=== PATIENT | male | born 1950 | race Caucasian/White ===

== ENCOUNTER 2022-09-26 09:52 | Outpatient (CLI) | payer MEDICARE, OTHER ==
[2022-09-26] VITALS (18 sets, daily range): BP systolic 110–151; BP diastolic 52–88
[~2022-09-26 09:52] MED LIST: ONDA8TAB6 PO
== END 2022-09-26 23:59 | disposition home or self-care (01) ==
LOC: CARD DIAG 09:52
PROVIDERS: ATTEND Internal Medicine Cardiovascular Disease
DX: R55 Syncope and collapse (principal); G90.9 Disorder of the autonomic nervous system, unspecified
CPT/HCPCS: 93660

== ENCOUNTER 2022-12-01 15:00 | Inpatient (IN) | payer MEDICARE, OTHER ==
[~2022-12-01] VITALS: Ht 182.9 cm; Wt 97.8 kg
--- NOTE | 2022-12-01 15:17 | NUR ---
EKG 1510
[2022-12-01 15:27] LABS: EOSINOPHILS % (AUTO) 0 % (0-6); HEMOGLOBIN 13.1 g/dl (14.0-17.9); RED BLOOD COUNT 4.33 X10'6 (4.70-6.10); WHITE BLOOD COUNT 13.6 X10'3 (4.5-11.0)
[2022-12-01 15:30] LABS: BASOPHILS % (AUTO) 0.1 % (0-1); HEMATOCRIT 37.9 % (42.0-52.0); LYMPHOCYTES # (AUTO) 0.3 X10'3 (1.1-4.8); LYMPHOCYTES % (AUTO) 2.5 % (21-51); MEAN CORPUSCULAR HEMOGLOBIN 30.2 PG (27.0-31.0); MEAN CORPUSCULAR HGB CONC 34.5 g/dL (33.0-36.5); MEAN CORPUSCULAR VOLUME 87.7 FL (78-98); MONOCYTES # (AUTO) 0.3 X10'3 (0-0.9); MONOCYTES % (AUTO) 1.9 % (2-12); NEUTROPHILS # (AUTO) 12.9 X10'3 (1.8-7.7); NEUTROPHILS % (AUTO) 95.5 % (42-75); PLATELET COUNT 189 X10'3 (140-440); RED CELL DISTRIBUTION WIDTH 13.2 % (11.5-14.5)
[2022-12-01] MEDS ORDERED: acetaminophen 325mg tablet PO ONE (15:40)
[2022-12-01 15:48] LABS: ALANINE AMINOTRANSFERASE 20 U/L (12-78); ALBUMIN 4.2 G/DL (3.4-5.0); ALBUMIN/GLOBULIN RATIO 1.2 (1.1-1.5); ALKALINE PHOSPHATASE 87 IU/L (46-116); ANION GAP 12 (8-16); ASPARTATE AMINO TRANSFERASE 16 U/L (10-37); BILIRUBIN,TOTAL 2.2 MG/DL (0.1-1.0); BLOOD UREA NITROGEN 24 MG/DL (7-18); BUN/CREATININE RATIO 14.6 (10.0-20.0); CALCIUM 9.3 MG/DL (8.5-10.1); CHLORIDE 103 MMOL/L (99-107); CREATININE 1.64 MG/DL (0.60-1.10); GLUCOSE 246 MG/DL (70-104); POTASSIUM 4.9 MMOL/L (3.5-5.1); SODIUM 134 MMOL/L (135-145); TOTAL CARBON DIOXIDE 19.3 MMOL/L (24-32); TOTAL PROTEIN 7.6 G/DL (6.4-8.2); eCRCL 44 ML/MIN; eGFR 41 ML/MIN
[2022-12-01 15:51] LABS: PRO BRAIN NATRIURETIC PEPTIDE 121 PG/ML (0-125)
--- NOTE | 2022-12-01 17:18 | NUR ---
PT STATED SHE GAVE HIM 500 MG TABLET OF TYLENOL 1 HR AGO. RN WILL GABRIEL TEMP.
[2022-12-01] MEDS ORDERED: ibuprofen tablet 400 MG TABLET PO ONE (17:25)
--- NOTE | 2022-12-01 17:28 | NUR ---
RN NOTIFIED DR HANCOCK THAT PT RECD 500 MG TYLENOL TABLET 1 HR AGO AND TEMP IS 102.5. PER DR HANCOCK GIVE 400 MG IBUPROFEN PO ONCE AND CONT TO MONITOR/ALSO ORD COVID AND FLU TEST.
[2022-12-01 20:15] LABS: BILIRUBIN,URINE SMALL (Neg); CLARITY,URINE TURBID (Clear); COLOR,URINE AMBER (Yellow); GLUCOSE, URINE NEGATIVE (Neg); KETONES,URINE TRACE mg/dl (Neg); LEUKOCYTE ESTERASE ,URINE MODERATE (Neg); NITRITES, URINE NEGATIVE (Neg); OCCULT BLOOD,URINE TRACE-INTACT (Neg); PH,URINE 5.5 (4.8-8.0); PROTEIN,URINE 100 mg/dl (Neg); UROBILINOGEN,URINE 0.2 E.U/dL (0.2-1.0)
[2022-12-01 20:30] LABS: UA COLLECTION TYPE CLN CATCH MIDSTREAM
[2022-12-01 20:31] LABS: SQUAMOUS EPITHELIAL CELL,UR MANY /LPF (FEW)
[2022-12-01 20:33] LABS: RBC,URINE 0-2 /HPF (0-2); WBC,URINE TNTC /HPF (0-4)
[2022-12-01 20:34] LABS: BACTERIA,URINE 4+ /HPF (Neg)
[2022-12-01 20:43] LABS: CAL OXALATE CRYSTALS 1+ /HPF (NEGATIVE)
[2022-12-01] MEDS ORDERED: temazepam 15mg capsule PO PRN (21:00)
[2022-12-01] MEDS ORDERED: CefTRIAXone/D5W-Rocephin 1gm 50 ML IV ONE (21:10)
[2022-12-01] MEDS ORDERED: morphine 2 MG/ML inj. syringe IV PRN ×2 (23:20)
[2022-12-01] MEDS ORDERED: HYDROcodone/acetaminophen 5mg/325mg tablet PO PRN (23:20)
[2022-12-01] MEDS ORDERED: diphenhydrAMINE 25mg capsule PO PRN (23:20)
[2022-12-01] MEDS ORDERED: diphenhydrAMINE 50 mg/ml inj IV PRN (23:20)
[2022-12-01] MEDS ORDERED: magnesium hydroxide 30ml (MOM) UD suspension PO PRN (23:20)
[2022-12-01] MEDS ORDERED: acetaminophen 325mg tablet PO PRN (23:20)
[2022-12-01] MEDS ORDERED: ondansetron/PF 4mg/2ml inj IV PRN (23:20)
[2022-12-01] MEDS ORDERED: bisacodyl 10mg suppository rectal RC PRN (23:20)
[2022-12-01] MEDS ORDERED: acetaminophen 650mg rectal suppository RC PRN (23:20)
[2022-12-01] MEDS ORDERED: HYDROmorphone inj. 0.5 MG/0.5 ML DISP.SYRIN IV PRN (23:20)
[2022-12-01] MEDS ORDERED: HYDROcodone/acetaminophen 10/325mg tab PO PRN (23:20)
[2022-12-01] MEDS ORDERED: mag hydrox/Alum hydrox/simeth 30ml oral suspension PO PRN (23:20)
[2022-12-01] MEDS ORDERED: ondansetron 4mg rapidly disintigrating tab PO PRN (23:20)
[2022-12-01] MEDS ORDERED: insulin Lispro (HumaLOG) vial - multi-dose SQ SCH (23:25)
[2022-12-01] MEDS ORDERED: glucagon, human recombinant 1mg kit SUBCUT PRN (23:25)
[2022-12-01] MEDS ORDERED: DEXTROSE 15 GM of carb/4 tabs (each vial/BOTTLE has 4 tablets) PO PRN ×2 (23:25)
[2022-12-01] MEDS ORDERED: dextrose 50%-water 50ml dispensing syringe IV PRN ×2 (23:25)
[2022-12-01] MEDS ORDERED: MESSAGE TO PHARMACY PO ONE (23:25)
[2022-12-01] MEDS: normal saline 1000ml 1,000 ML IV SCH (23:39)
[2022-12-02] VITALS (11 sets, daily range): BP systolic 123–169; BP diastolic 56–73; PULSE 85–117; RESP 15–20; TEMP 98.2–102.3; O2SAT 92–98
[2022-12-02] MEDS ORDERED: LOSA100T58 PO (00:02)
[2022-12-02] MEDS ORDERED: LEVO137T2 PO (00:02)
[2022-12-02] MEDS ORDERED: FLO0.4C PO (00:02)
[2022-12-02] MEDS ORDERED: METF-1203 PO (00:02)
[2022-12-02] MEDS ORDERED: GLIM4TAB7 PO (00:02)
[2022-12-02] MEDS ORDERED: DUTA0.5C36 PO (00:02)
[2022-12-02] MEDS ORDERED: CYAN-104 PO (00:04)
--- NOTE | 2022-12-02 00:41 | NUR ---
ATTEMPTED TO CALL REPORT TO BRUCE ROCA. NOTIFIED RN IS WITH A PATIENT AND WILL CALL BACK
--- NOTE | 2022-12-02 06:14 | NUR ---
Problems reprioritized. Patient report given, questions answered & plan of care reviewed with BRUCE Vincent.
[2022-12-02 06:30] LABS: APTT 21 SECONDS (22-32); INR 1.1 INR; PROTHROMBIN TIME 11.4 SECONDS (9.0-12.0)
--- NOTE | 2022-12-02 06:35 | NUR ---
Patient in room [facility]TH[facility] 4024. I have received report from Natalee and had the opportunity to ask questions and assume patient care.
[2022-12-02 06:42] LABS: BASOPHILS % (AUTO) 0.3 % (0-1); EOSINOPHILS % (AUTO) 0 % (0-6); HEMATOCRIT 33.8 % (42.0-52.0); HEMOGLOBIN 11.5 g/dl (14.0-17.9); LYMPHOCYTES # (AUTO) 0.4 X10'3 (1.1-4.8); LYMPHOCYTES % (AUTO) 2.9 % (21-51); MEAN CORPUSCULAR HEMOGLOBIN 30.4 PG (27.0-31.0); MEAN CORPUSCULAR VOLUME 89.4 FL (78-98); MONOCYTES # (AUTO) 0.4 X10'3 (0-0.9); MONOCYTES % (AUTO) 3.4 % (2-12); NEUTROPHILS # (AUTO) 12.1 X10'3 (1.8-7.7); NEUTROPHILS % (AUTO) 93.4 % (42-75); PLATELET COUNT 151 X10'3 (140-440); RED BLOOD COUNT 3.79 X10'6 (4.70-6.10); RED CELL DISTRIBUTION WIDTH 13.1 % (11.5-14.5); WHITE BLOOD COUNT 12.9 X10'3 (4.5-11.0)
[2022-12-02 07:00] LABS: ALANINE AMINOTRANSFERASE 13 U/L (12-78); ALBUMIN 3.5 G/DL (3.4-5.0); ALBUMIN/GLOBULIN RATIO 1.1 (1.1-1.5); ALKALINE PHOSPHATASE 71 IU/L (46-116); ANION GAP 12 (8-16); ASPARTATE AMINO TRANSFERASE 18 U/L (10-37); BILIRUBIN,TOTAL 2.1 MG/DL (0.1-1.0); BLOOD UREA NITROGEN 32 MG/DL (7-18); BUN/CREATININE RATIO 16.6 (10.0-20.0); CALCIUM 8.5 MG/DL (8.5-10.1); CHLORIDE 103 MMOL/L (99-107); CHOL/HDL RATIO 2.6 (0.00-4.99); CHOLESTEROL 110 MG/DL (0-200); CREATINE KINASE 118 U/L (39-308); CREATININE 1.93 MG/DL (0.60-1.10); GLUCOSE 179 MG/DL (70-104); HDL CHOLESTEROL 43 MG/DL (35-60); HEMOGLOBIN A1C 6.5 % (4.5-6.2); LDL CHOLESTEROL 61 MG/DL (50-100); LIPASE < 50 U/L (73-393); MAGNESIUM 1.8 MG/DL (1.5-2.4); PHOSPHORUS 2.8 MG/DL (2.3-4.5); POTASSIUM 4.7 MMOL/L (3.5-5.1); PRO BRAIN NATRIURETIC PEPTIDE 627 PG/ML (0-125); SODIUM 133 MMOL/L (135-145); THYROID STIMULATING HORMONE 0.08 ulU/ml (0.34-4.50); TOTAL PROTEIN 6.7 G/DL (6.4-8.2); TRIGLYCERIDES 60 MG/DL (20-135); eCRCL 37 ML/MIN; eGFR 34 ML/MIN
[2022-12-02] MEDS: pantoprazole 40mg Tablet.DR PO SCH (07:34)
[2022-12-02] MEDS: heparin, porcine 5000 units/ml vial SQ SCH ×2 (07:35→19:20)
[2022-12-02] MEDS: CefTRIAXone 2gm/D5W 50ml BAG 50 ML IV SCH (07:35)
[2022-12-02] MEDS: normal saline 1000ml 1,000 ML IV SCH ×4 (07:45→21:36)
[2022-12-02] MEDS: docusate sod 100mg capsule PO SCH ×2 (08:00→20:00)
--- NOTE | 2022-12-02 09:16 | NUR ---
RE: Felix, [id number], positive blood cultures, gm neg rods, anaerobic bottle Day Vincent
--- NOTE | 2022-12-02 10:02 | NUR ---
Initial: Pt admit for UTI, sepsis, generalized weakness, HANG with hyponatremia, hypovolemia, and anemia. Diet just advanced to CHO controlled from clear liquid diet, pending documentation of PO intake. Per EMR pt with T2DM, well controlled with A1c 6.5%, DM education not warranted. Recommend liberalizing to regular diet if blood sugars allow it as CHO controlled diet is very restrictive and estimated nutrient needs are not able to be met without ONS and/or additional protein. LBM 12/01 per EMR. Will continue to follow closely and make recommendations as appropriate pending trends in PO intake. Recommendations: 1) Liberalize to regular diet if able; T2DM well controlled with A1c 6.5% and current diet only able to meet 75% EEN and 66% EPN if pt with 100% PO intake of meals 2) Monitor need for ONS/additional protein 3) Routine bowel care 4) Weekly scaled weights Addendum: 12/02/22 at [address] Amended: Links added.
[2022-12-02] MEDS: acetaminophen 325mg tablet PO PRN ×2 (10:36→19:08)
--- NOTE | 2022-12-02 14:52 | NUR ---
Patient declines to take insulin after meeting the protocol, aware.
--- NOTE | 2022-12-02 18:20 | NUR ---
Problems reprioritized. Patient report given, questions answered & plan of care reviewed with Roman.
--- NOTE | 2022-12-02 19:04 | NUR ---
ruperto [id number] pt [id number] [facility]. fever 101.2 again tonight. tylenol given. any new orders? want additional blood cultures since last one was positive? sent to DR. Bailon
[2022-12-02] MEDS ORDERED: insulin glargine (Lantus) pen - multi-dose SQ SCH (21:00)
[2022-12-02] MEDS ORDERED: losartan 50mg tablet PO SCH (21:00)
--- NOTE | 2022-12-02 21:03 | NUR ---
notified dr. ham about patient's elevated temperature, positive blood cultures received earlier today and need for home meds. orders received for losartan and amaryl, ok to discontinue the diabetic protocol. no change in antibiotics "he is covered". MD aware of pt's VS. printed education sheets for patient and . concerned about fever. educated to call through the night if wants updates.
[2022-12-02] MEDS: losartan 50mg tablet PO SCH (21:33)
--- NOTE | 2022-12-02 23:00 | NUR ---
miranda called to check on patient. notified that his temperature is down to 99.9. encouraged to call later if she is concerned.
[2022-12-03 02:00] VITALS: BP 137/71; PULSE 89; RESP 17; TEMP 97.9; O2SAT 96
--- NOTE | 2022-12-03 03:04 | NUR ---
Monitoring for sepsis protocol, Frequent vitals, NS 150, I/O, PT continues to be stable, Lab values. Addendum: 12/03/22 at 0310 by Yash Shea LVN Amended: Links added.
[2022-12-03] MEDS: normal saline 1000ml 1,000 ML IV SCH ×2 (04:37→17:11)
--- NOTE | 2022-12-03 05:10 | NUR ---
agree with SABINE vásquez.
[2022-12-03 06:00] VITALS: BP 146/84; PULSE 106; RESP 17; TEMP 99.1; O2SAT 99
[2022-12-03 06:19] LABS: BASOPHILS % (AUTO) 0.2 % (0-1); EOSINOPHILS % (AUTO) 0.3 % (0-6); HEMATOCRIT 32.4 % (42.0-52.0); HEMOGLOBIN 11.4 g/dl (14.0-17.9); LYMPHOCYTES # (AUTO) 0.4 X10'3 (1.1-4.8); LYMPHOCYTES % (AUTO) 12.7 % (21-51); MEAN CORPUSCULAR HEMOGLOBIN 30.7 PG (27.0-31.0); MEAN CORPUSCULAR HGB CONC 35.2 g/dL (33.0-36.5); MEAN CORPUSCULAR VOLUME 87.4 FL (78-98); MONOCYTES # (AUTO) 0.4 X10'3 (0-0.9); MONOCYTES % (AUTO) 14.2 % (2-12); NEUTROPHILS # (AUTO) 2.2 X10'3 (1.8-7.7); NEUTROPHILS % (AUTO) 72.6 % (42-75); PLATELET COUNT 129 X10'3 (140-440); RED BLOOD COUNT 3.71 X10'6 (4.70-6.10); RED CELL DISTRIBUTION WIDTH 13.2 % (11.5-14.5); WHITE BLOOD COUNT 3.1 X10'3 (4.5-11.0)
[2022-12-03 07:16] LABS: ALANINE AMINOTRANSFERASE 18 U/L (12-78); ALBUMIN 3.2 G/DL (3.4-5.0); ALKALINE PHOSPHATASE 64 IU/L (46-116); ANION GAP 11 (8-16); ASPARTATE AMINO TRANSFERASE 22 U/L (10-37); BILIRUBIN,TOTAL 1.3 MG/DL (0.1-1.0); BLOOD UREA NITROGEN 21 MG/DL (7-18); BUN/CREATININE RATIO 13.8 (10.0-20.0); CALCIUM 8.3 MG/DL (8.5-10.1); CHLORIDE 107 MMOL/L (99-107); CREATININE 1.52 MG/DL (0.60-1.10); GLUCOSE 91 MG/DL (70-104); POTASSIUM 4.1 MMOL/L (3.5-5.1); SODIUM 139 MMOL/L (135-145); TOTAL PROTEIN 6.4 G/DL (6.4-8.2); eCRCL 48 ML/MIN; eGFR 45 ML/MIN
[2022-12-03 07:30] VITALS: RESP 20
[2022-12-03] MEDS: pantoprazole 40mg Tablet.DR PO SCH (07:30)
[2022-12-03] MEDS: heparin, porcine 5000 units/ml vial SQ SCH (08:00)
[2022-12-03] MEDS: docusate sod 100mg capsule PO SCH ×2 (08:00→19:43)
[2022-12-03] MEDS: CefTRIAXone 2gm/D5W 50ml BAG 50 ML IV SCH (08:21)
[2022-12-03] MEDS: losartan 50mg tablet PO SCH (08:28)
[2022-12-03 10:00] VITALS: BP 147/61; PULSE 56; RESP 16; TEMP 98.6; O2SAT 94
[2022-12-03 17:00] VITALS: BP 152/79; PULSE 104; RESP 16; TEMP 97.3; O2SAT 95
--- NOTE | 2022-12-03 18:20 | NUR ---
Report to Roman BARRERA
[2022-12-03 22:00] VITALS: BP 160/82; PULSE 94; RESP 16; TEMP 99.7; O2SAT 96
[2022-12-04] MEDS: normal saline 1000ml 1,000 ML IV SCH ×2 (01:00→04:40)
[2022-12-04 02:03] VITALS: TEMP 99.1
[2022-12-04 06:00] VITALS: BP 155/69; PULSE 68; RESP 16; TEMP 99.4; O2SAT 97
[2022-12-04 07:25] LABS: HEMOGLOBIN 11.1 g/dl (14.0-17.9); MEAN PLATELET VOLUME 7.9 FL (7.4-10.4)
[2022-12-04 07:27] LABS: ALANINE AMINOTRANSFERASE 18 U/L (12-78); ALBUMIN 2.9 G/DL (3.4-5.0); ALBUMIN/GLOBULIN RATIO 0.9 (1.1-1.5); ALKALINE PHOSPHATASE 55 IU/L (46-116); ANION GAP 8 (8-16); ASPARTATE AMINO TRANSFERASE 21 U/L (10-37); BILIRUBIN,TOTAL 0.8 MG/DL (0.1-1.0); BLOOD UREA NITROGEN 15 MG/DL (7-18); BUN/CREATININE RATIO 10.6 (10.0-20.0); CALCIUM 8.5 MG/DL (8.5-10.1); CHLORIDE 107 MMOL/L (99-107); CREATININE 1.41 MG/DL (0.60-1.10); GLUCOSE 85 MG/DL (70-104); POTASSIUM 3.9 MMOL/L (3.5-5.1); SODIUM 137 MMOL/L (135-145); TOTAL CARBON DIOXIDE 21.7 MMOL/L (24-32); TOTAL PROTEIN 6.1 G/DL (6.4-8.2); eCRCL 51 ML/MIN; eGFR 49 ML/MIN
[2022-12-04 07:28] LABS: HEMATOCRIT 31.3 % (42.0-52.0); MEAN CORPUSCULAR HEMOGLOBIN 30.9 PG (27.0-31.0); MEAN CORPUSCULAR HGB CONC 35.4 g/dL (33.0-36.5); MEAN CORPUSCULAR VOLUME 87.1 FL (78-98); PLATELET COUNT 133 X10'3 (140-440); RED CELL DISTRIBUTION WIDTH 12.9 % (11.5-14.5); WHITE BLOOD COUNT 2.4 X10'3 (4.5-11.0)
[2022-12-04] MEDS: pantoprazole 40mg Tablet.DR PO SCH (08:42)
[2022-12-04] MEDS: CefTRIAXone 2gm/D5W 50ml BAG 50 ML IV SCH (08:42)
[2022-12-04] MEDS: docusate sod 100mg capsule PO SCH (08:42)
[2022-12-04 08:44] VITALS: RESP 18
[2022-12-04] MEDS: losartan 50mg tablet PO SCH (08:44)
[2022-12-04 10:00] VITALS: BP 130/55; PULSE 82; RESP 16; TEMP 98.8; O2SAT 95
[2022-12-04 10:21] LABS: TOTAL CELLS COUNTED 100
[2022-12-04 10:28] LABS: PLATELET ESTIMATE DECREASED
[2022-12-04] MEDS ORDERED: LEVO-65 PO ×2 (10:49)
--- NOTE | 2022-12-04 16:03 | NUR ---
PAGER ID: [phone] MESSAGE: Juanjo Washington concern regarding multiple health warnings on Levaquin including allergy to cipro. [phone]. Thank you Deloris
[2022-12-04] MEDS ORDERED: AMOX-580 PO ×2 (20:22)
[2022-12-04] MEDS ORDERED: CEFD300C3 PO (20:28)
== END 2022-12-04 11:50 | disposition home or self-care (01) | DRG 871 ==
LOC: ER 15:01 → ED HOLD 23:23 → ORTHO 4S 12-02 01:11 → UNDODISIN 12-04 11:58
PROVIDERS: ADMIT Family Medicine; ATTEND Family Medicine
DX: A41.51 Sepsis due to Escherichia coli [E. coli] (principal); N17.0 Acute kidney failure with tubular necrosis; N10 Acute pyelonephritis; E87.1 Hypo-osmolality and hyponatremia; E87.20 Acidosis, unspecified; I13.0 Hypertensive heart and chronic kidney disease with heart failure and stage 1 through stage 4 chronic kidney disease, or unspecified chronic kidney disease; E11.22 Type 2 diabetes mellitus with diabetic chronic kidney disease; I50.9 Heart failure, unspecified; N40.0 Benign prostatic hyperplasia without lower urinary tract symptoms; E86.1 Hypovolemia; N18.30 Chronic kidney disease, stage 3 unspecified; Z20.822 Contact with and (suspected) exposure to COVID-19; K80.20 Calculus of gallbladder without cholecystitis without obstruction; D64.9 Anemia, unspecified; K21.9 Gastro-esophageal reflux disease without esophagitis; Z87.11 Personal history of peptic ulcer disease; Z88.1 Allergy status to other antibiotic agents; Z87.442 Personal history of urinary calculi; B96.20 Unspecified Escherichia coli [E. coli] as the cause of diseases classified elsewhere
CPT/HCPCS: 36415; 71045; 74176; 76700; 80053; 80061; 81001; 82550; 82948; 83036; 83605; 83690; 83735; 83880; 84100; 84443; 84484; 85007; 85025; 85610; 85730; 87040; 87077; 87081; 87088; 87186; 87502; 87503; 87811; 93005; 93306; 99285; G0378; J0696; J1644; J1815; J7030